=== PATIENT | male | born 1995 | race Caucasian/White ===

== ENCOUNTER 2022-09-12 11:58 | Emergency (ER) | payer BC, OTHER ==
[2022-09-12] MEDS ORDERED: Propofol 200 MG/20 ML SDV IVPUSH ONE ×2 (12:55→14:23)
[2022-09-12] MEDS ORDERED: Sodium Chloride 0.9% 1,000 ML IV ONE (12:55)
[2022-09-12] MEDS ORDERED: Dexmedetomidine 200 MCG/2 ML SDV ONE (15:42)
[2022-09-12] MEDS ORDERED: Lidocaine 2% 5 ML SDV ONE (15:43)
[2022-09-12] MEDS ORDERED: Water For Injection, Sterile 20 ML ONE (15:43)
[2022-09-12] MEDS ORDERED: Propofol 200 MG/20 ML SDV ONE ×2 (15:47→16:21)
[2022-09-12] MEDS ORDERED: Ropivacaine 0.5% 5 MG/ML 30 ML SDV ONE (15:50)
[2022-09-12 16:03] LABS: CORONAVIRUS COVID-19 NAA NEGATIVE (NEGATIVE); INFLUENZA A NAA NEGATIVE (NEGATIVE); INFLUENZA B NAA NEGATIVE (NEGATIVE)
[2022-09-12] MEDS ORDERED: fentaNYL 100 MCG/2 ML SDV ONE (16:22)
== END 2022-09-12 17:30 | disposition home or self-care (01) ==
LOC: MW.ED 11:58
DX: S52.122A Displaced fracture of head of left radius, initial encounter for closed fracture (principal); S53.125A Posterior dislocation of left ulnohumeral joint, initial encounter; Z20.822 Contact with and (suspected) exposure to COVID-19; W00.0XXA Fall on same level due to ice and snow, initial encounter
CPT/HCPCS: 0240U; 24600; 73070; 73080; 76000; 99283; J2704; J3010; J7030; J2795; J3490